=== PATIENT | male | born 1995 | race Caucasian/White ===

== ENCOUNTER 2017-06-27 12:01 | Emergency (ER) | payer SELFPAY ==
[~2017-06-27] VITALS: Ht 182.9 cm; Wt 89.3 kg
[2017-06-27 12:56] VITALS: BP 125/75; Ht 182.9 cm; Wt 89.3 kg
== END 2017-06-27 17:00 | disposition home or self-care (01) ==
LOC: ED 12:01
DX: R10.9 Unspecified abdominal pain (principal)
CPT/HCPCS: J1885

== ENCOUNTER 2017-10-04 23:01 | Emergency (ER) | payer SELFPAY ==
[~2017-10-04] VITALS: Ht 182.9 cm; Wt 83.5 kg
[2017-10-04 23:06] VITALS: Ht 182.9 cm; Wt 83.5 kg
[2017-10-05 00:56] VITALS: BP 140/85
== END 2017-10-05 00:56 | disposition left against medical advice (07) ==
LOC: ED 23:01
DX: Z53.21 Procedure and treatment not carried out due to patient leaving prior to being seen by health care provider (principal)

== ENCOUNTER 2017-10-20 22:57 | Emergency (ER) | payer SELFPAY ==
[~2017-10-20] VITALS: Ht 182.9 cm; Wt 81.2 kg
[2017-10-20 23:07] VITALS: Ht 182.9 cm; Wt 81.2 kg
[2017-10-21 04:03] VITALS: BP 119/55
== END 2017-10-21 04:03 | disposition home or self-care (01) ==
LOC: ED 22:57
DX: S43.004A Unspecified dislocation of right shoulder joint, initial encounter (principal); Y04.8XXA Assault by other bodily force, initial encounter; Y93.89 Activity, other specified; Y92.89 Other specified places as the place of occurrence of the external cause; Y99.8 Other external cause status
CPT/HCPCS: J2270; J2704; Q0092

== ENCOUNTER 2017-10-28 13:34 | Emergency (ER) | payer SELFPAY ==
[~2017-10-28] VITALS: Ht 182.9 cm; Wt 90.7 kg
[2017-10-28 13:50] VITALS: Ht 182.9 cm; Wt 90.7 kg
[2017-10-28 14:04] VITALS: BP 138/64
== END 2017-10-28 14:04 | disposition home or self-care (01) ==
LOC: ED 13:34
DX: Z02.79 Encounter for issue of other medical certificate (principal)

== ENCOUNTER 2019-02-16 12:29 | Emergency (ER) | payer SELFPAY ==
[~2019-02-16] VITALS: Ht 175.3 cm; Wt 85.7 kg
[2019-02-16 12:42] VITALS: Ht 175.3 cm; Wt 85.7 kg
[2019-02-16 13:42] VITALS: BP 132/76
== END 2019-02-16 13:43 | disposition home or self-care (01) ==
LOC: ED 12:29
DX: L30.9 Dermatitis, unspecified (principal); F17.210 Nicotine dependence, cigarettes, uncomplicated; J45.909 Unspecified asthma, uncomplicated